=== PATIENT | female | born 1960 | race Caucasian/White ===

== ENCOUNTER 2017-02-20 04:27 | Emergency (ER) | payer OTHER ==
[~2017-02-20] VITALS: Ht 152.4 cm; Wt 114.0 kg
[~2017-02-20 04:27] MED LIST: AMBIEN10 MG PO; ATORVASTATIN CA20 MG PO; AUGMENTIN875 MG PO; BENTYL10 MG PO; BENTYL20 MG PO; CALCIUM 500 MG1 EACH PO; CARAFATE1 GM PO; CEPHALEXIN500 MG PO; COLACE100 MG PO; DAILY VITE1 EAC1 PO; DIAZEPAM5 MG PO; DITROPAN XL10 MG PO; DITROPAN5 MG PO; DOXYCYCLINE HY100 MG PO; DULCOLAX10 MG PR; ENDOCET 5-3251 EACH PO; ENOXAPARIN40 MG/0.4 SC; FENOFIBRATE160 M1 PO; FERROUS SULFAT325 MG PO; FISH OIL 1,0001 EAC7 PO; FLAGYL500 MG PO; FLEET ENEMA-AD118 ML PR; FLONASE16 G1 BOTH NARES; FLOVENT 22120 INHALA IH; GLUCOPHAGE1000 MG PO; KAYEXALATE453.6 GM PO; LANTUS 10100 UNITS/ SC; LANTUS 3 M100 UNITS1 SC; LANTUS100 UNIT/2 SQ; LEXAPRO10 MG PO; LEXAPRO20 MG PO; LISINOPRIL20 MG PO; LISINOPRIL40 MG PO; LOVAZA1 GM PO; LOVENOX40 MG/0.4 SC; LYRICA150 MG PO; MAALOX ADVANCE355 ML PO; MELOXICAM15 MG PO; MELOXICAM7.5 MG PO; METFORMIN HCL1000 M1 PO; METFORMIN HCL1000 MG PO; MOBIC7.5 MG PO; MOTRIN IB200 MG PO; MOTRIN400 MG PO; NAPROSYN500 MG PO; NOVOLOG 10100 UNITS/ SC; NOVOLOG PE100 UNITS/ SC; NOVOLOG100 UNIT/2 SQ; OMEGA-31000 M1 PO; OMEPRAZOLE20 M2 PO; OMEPRAZOLE20 MG PO; OXYBUTYNIN CHLOR5 M1 PO; OXYCODONE HCL5 MG PO; PHILLIPS'400 MG/5 M PO; PRILOSEC20 MG PO; PRINIVIL20 MG PO; RANITIDINE HCL150 MG PO; ROXICODONE5 MG PO; SIMVASTATIN40 MG PO; TRAMADOL HCL50 MG PO; TYLENOL REGULA325 MG PO; ULTRAM50 MG PO; VAGINAL ITCH CR30 GM TP; VALIUM5 MG PO; VENLAFAXINE HC150 M1 PO; VENLAFAXINE HCL75 M3 PO; VENTOLIN HFA18 GM IH; VITAMIN D31000 UNIT PO; ZANTAC150 MG PO; ZOCOR40 MG PO; ZOFRAN ODT4 MG PO; ZOFRAN ODT8 MG PO; ZOFRAN4 MG PO; ZOLPIDEM TARTRA10 MG PO; ZOSYN 3.3753.375 GM IV
[2017-02-20 05:25] LABS: CHLORIDE 105 mEq/L (99-109); POTASSIUM 3.5 mEq/L (3.7-5.4); SODIUM 136 mEq/L (136-147)
[2017-02-20 05:28] LABS: GLUCOSE 189 mg/dL (70-99)
[2017-02-20 05:29] LABS: ANION GAP 9 MEQ/L (2-14)
[2017-02-20 05:30] LABS: TOTAL BILIRUBIN 0.6 mg/dL (0.0-1.0)
[2017-02-20 05:31] LABS: ALKALINE PHOSPHATASE 128 IU/L (3-129); GFR ESTIMATE (CALCULATED) > 59 mL/min/; HEMATOCRIT 42.8 % (36.0-46.0); MCH 29.1 PG (29.0-34.0); MCHC 33.9 G/DL (30.0-36.0); MCV 85.9 FL (83-99); MEAN PLAT.VOLUME 10.5 uM^3 (9.5-12.4); PLATELET COUNT 300 K/uL (156-360); RBC DIS.WIDTH-SD 40.1 % (39-53); RED BLOOD COUNT 4.98 M/uL (3.80-5.20); WHITE BLOOD COUNT 8.8 K/uL (4.1-10.2)
[2017-02-20 05:32] LABS: UREA NITROGEN (BUN) 15 mg/dL (9-23)
[2017-02-20] MEDS ORDERED: REGLAN10 MG PO (05:56)
[2017-02-20 06:11] VITALS: BP 131/82
== END 2017-02-20 06:14 | disposition home or self-care (01) ==
LOC: EME 04:27
PROVIDERS: Physician Assistant
DX: R11.2 Nausea with vomiting, unspecified (principal); R10.9 Unspecified abdominal pain; E11.9 Type 2 diabetes mellitus without complications; Z79.84 Long term (current) use of oral hypoglycemic drugs; I10 Essential (primary) hypertension; E78.5 Hyperlipidemia, unspecified; Z87.442 Personal history of urinary calculi; Z90.49 Acquired absence of other specified parts of digestive tract; Z87.891 Personal history of nicotine dependence
CPT/HCPCS: 80053; 81003; 85027; 99281; 99284

== ENCOUNTER 2017-08-27 20:10 | Emergency (ER) | payer OTHER ==
[~2017-08-27] VITALS: Ht 152.4 cm; Wt 117.1 kg
[~2017-08-27 20:10] MED LIST changes: +REGLAN10 MG PO
[2017-08-27 21:02] LABS: HEMATOCRIT 33.3 % (36.0-46.0); HEMOGLOBIN 11.1 G/DL (11.9-15.5); MCH 29.1 PG (29.0-34.0); MCHC 33.3 G/DL (30.0-36.0); MCV 87.2 FL (83-99); PLATELET COUNT 232 K/uL (156-360); RBC DIS.WIDTH-CV 12.7 % (11.8-14.6); RBC DIS.WIDTH-SD 40.1 % (39-53); RED BLOOD COUNT 3.82 M/uL (3.80-5.20); WHITE BLOOD COUNT 8.6 K/uL (4.1-10.2)
[2017-08-27 21:05] LABS: APPEARANCE TURBID ((CLEAR)); BILIRUBIN NEGATIVE; BLOOD LARGE; COLOR AMBER ((YELLOW)); GLUCOSE (STRIP) NEGATIVE; KETONES NEGATIVE; LEUKOCYTES LARGE; NITRITE NEGATIVE; PROTEIN (STRIP) 100; UROBILINOGEN 0.2 MG/DL (0.2-1.0)
[2017-08-27 21:22] LABS: RED BLOOD CELLS TNTC /HPF (0-5)
[2017-08-27 21:23] LABS: UCUL ADDED? YES; WHITE BLOOD CELLS TNTC /HPF (0-5)
[2017-08-27 21:28] LABS: ALBUMIN 3.1 g/dL (3.2-4.8); CHLORIDE 108 mEq/L (99-109); POTASSIUM 4.3 mEq/L (3.7-5.4); SODIUM 136 mEq/L (136-147)
[2017-08-27 21:31] LABS: TOTAL PROTEIN 6.1 g/dL (6.4-8.3)
[2017-08-27 21:33] LABS: TOTAL BILIRUBIN 0.3 mg/dL (0.0-1.0)
[2017-08-27 21:34] LABS: ALKALINE PHOSPHATASE 117 IU/L (3-129); CREATININE 0.9 mg/dL (0.6-1.3); GFR ESTIMATE (CALCULATED) > 59 mL/min/
[2017-08-27 21:35] LABS: UREA NITROGEN (BUN) 17 mg/dL (9-23)
[2017-08-27 21:36] LABS: AST (GOT) 9 IU/L (2-34)
[2017-08-27 21:37] LABS: ALT (GPT) 6 IU/L (3-49)
[2017-08-27 21:40] LABS: GLUCOSE 419 mg/dL (70-99)
[2017-08-27] MEDS ORDERED: KEFLEX500 MG PO (22:26)
[2017-08-27 22:54] VITALS: BP 142/72
[2017-08-28] MEDS ORDERED: FLEXERIL10 MG PO (18:57)
== END 2017-08-27 23:09 | disposition home or self-care (01) ==
LOC: EME → EDBD 20:10 → EME 20:10
PROVIDERS: Physician Assistant
DX: M25.571 Pain in right ankle and joints of right foot (principal); G89.29 Other chronic pain; E11.65 Type 2 diabetes mellitus with hyperglycemia; N39.0 Urinary tract infection, site not specified; Z91.14 Patient's other noncompliance with medication regimen; Z79.4 Long term (current) use of insulin; Z88.5 Allergy status to narcotic agent
CPT/HCPCS: 80053; 81003; 82010; 82948; 85027; 87086; 93971; 99281; 99283; J0696; J3010; J7030

== ENCOUNTER 2017-08-28 15:41 | Emergency (ER) | payer OTHER ==
[~2017-08-28] VITALS: Ht 172.7 cm; Wt 111.4 kg
[~2017-08-28 15:41] MED LIST changes: +KEFLEX500 MG PO
[2017-08-28] MEDS ORDERED: FLEXERIL10 MG PO (18:57)
[2017-08-28 19:35] VITALS: BP 138/72
== END 2017-08-28 19:41 | disposition home or self-care (01) ==
LOC: EME 15:41
DX: G89.29 Other chronic pain (principal); M25.571 Pain in right ankle and joints of right foot; Z96.661 Presence of right artificial ankle joint; E11.9 Type 2 diabetes mellitus without complications; Z79.4 Long term (current) use of insulin; Z87.440 Personal history of urinary (tract) infections; J45.909 Unspecified asthma, uncomplicated; Z87.891 Personal history of nicotine dependence
CPT/HCPCS: 73610; 99281; 99283; J3010

== ENCOUNTER 2017-10-16 21:03 | Emergency (ER) | payer OTHER ==
[~2017-10-16] VITALS: Ht 152.4 cm; Wt 113.0 kg
[~2017-10-16 21:03] MED LIST changes: +FLEXERIL10 MG PO
[2017-10-16 21:54] LABS: HEMATOCRIT 44.2 % (36.0-46.0); HEMOGLOBIN 14.4 G/DL (11.9-15.5); MCH 27.7 PG (29.0-34.0); MCHC 32.6 G/DL (30.0-36.0); PLATELET COUNT 307 K/uL (156-360); RBC DIS.WIDTH-CV 13.2 % (11.8-14.6); RBC DIS.WIDTH-SD 40.9 % (39-53); WHITE BLOOD COUNT 9.2 K/uL (4.1-10.2)
[2017-10-16 22:16] LABS: ALBUMIN 4.1 g/dL (3.2-4.8); CHLORIDE 95 mEq/L (99-109); SODIUM 133 mEq/L (136-147)
[2017-10-16 22:19] LABS: TOTAL PROTEIN 8.3 g/dL (6.4-8.3)
[2017-10-16 22:21] LABS: TOTAL BILIRUBIN 0.9 mg/dL (0.0-1.0)
[2017-10-16 22:22] LABS: ALKALINE PHOSPHATASE 134 IU/L (3-129); CREATININE 1.1 mg/dL (0.6-1.3); GFR ESTIMATE (CALCULATED) 55 mL/min/
[2017-10-16 22:23] LABS: UREA NITROGEN (BUN) 19 mg/dL (9-23)
[2017-10-16 22:24] LABS: AST (GOT) 28 IU/L (2-34)
[2017-10-16 22:25] LABS: ALT (GPT) 11 IU/L (3-49)
[2017-10-16 22:31] LABS: GLUCOSE 448 mg/dL (70-99)
[2017-10-16 22:32] LABS: QUANTITATIVE HCG < 4.0 MIU/ML
[2017-10-17 04:20] LABS: APPEARANCE CLOUDY ((CLEAR)); BILIRUBIN NEGATIVE; BLOOD NEGATIVE; COLOR YELLOW ((YELLOW)); GLUCOSE (STRIP) >=500; KETONES 5; LEUKOCYTES NEGATIVE; NITRITE NEGATIVE; PROTEIN (STRIP) 30
[2017-10-17] MEDS ORDERED: AUGMENTIN875 MG PO (04:35)
[2017-10-17] MEDS ORDERED: ZOFRAN4 MG PO (04:35)
[2017-10-17 04:49] LABS: EPITHELIAL CELLS 2+ /HPF; MUCUS 1+ /LPF; RED BLOOD CELLS 0-5 /HPF (0-5); WHITE BLOOD CELLS 0-5 /HPF (0-5)
[2017-10-17 04:50] LABS: BACTERIA 1+ /HPF; HYALINE CASTS 0-5 /LPF; UCUL ADDED? NO
[2017-10-17 05:09] VITALS: BP 164/75
== END 2017-10-17 05:09 | disposition home or self-care (01) ==
LOC: EME 21:03
PROVIDERS: Emergency Medicine
DX: E11.65 Type 2 diabetes mellitus with hyperglycemia (principal); Z79.4 Long term (current) use of insulin; K52.9 Noninfective gastroenteritis and colitis, unspecified; E86.0 Dehydration; R93.5 Abnormal findings on diagnostic imaging of other abdominal regions, including retroperitoneum; I10 Essential (primary) hypertension; K21.9 Gastro-esophageal reflux disease without esophagitis; E78.5 Hyperlipidemia, unspecified; J45.909 Unspecified asthma, uncomplicated; F32.9 Major depressive disorder, single episode, unspecified; Z87.442 Personal history of urinary calculi; Z87.891 Personal history of nicotine dependence
CPT/HCPCS: 74176; 80053; 81003; 82010; 82948; 84702; 85027; 99281; 99285; J2405; J7030

== ENCOUNTER 2017-10-29 13:33 | Emergency (ER) | payer OTHER ==
[~2017-10-29] VITALS: Ht 152.4 cm; Wt 120.0 kg
[2017-10-29 14:10] LABS: HEMATOCRIT 39.3 % (36.0-46.0); HEMOGLOBIN 13.2 G/DL (11.9-15.5); MCH 28.6 PG (29.0-34.0); MCHC 33.6 G/DL (30.0-36.0); MCV 85.1 FL (83-99); PLATELET COUNT 254 K/uL (156-360); RBC DIS.WIDTH-CV 13.4 % (11.8-14.6); RBC DIS.WIDTH-SD 41.5 % (39-53); RED BLOOD COUNT 4.62 M/uL (3.80-5.20); WHITE BLOOD COUNT 10.3 K/uL (4.1-10.2)
[2017-10-29 14:21] LABS: CHLORIDE 103 mEq/L (99-109); POTASSIUM 4.6 mEq/L (3.7-5.4); SODIUM 135 mEq/L (136-147)
[2017-10-29 14:22] LABS: GLUCOSE 362 mg/dL (70-99)
[2017-10-29 14:26] LABS: CREATININE 0.8 mg/dL (0.6-1.3); GFR ESTIMATE (CALCULATED) > 59 mL/min/
[2017-10-29 14:27] LABS: UREA NITROGEN (BUN) 17 mg/dL (9-23)
[2017-10-29 14:30] LABS: TROP-I INTERPRETATION NEGATIVE; TROPONIN-I < 0.01 ng/mL (0.0-0.30)
[2017-10-29 16:58] LABS: TROP-I INTERPRETATION NEGATIVE; TROPONIN-I < 0.01 ng/mL (0.0-0.30)
[2017-10-29 18:41] VITALS: BP 152/84
== END 2017-10-29 18:41 | disposition home or self-care (01) ==
LOC: EME 13:33
PROVIDERS: Emergency Medicine
DX: F11.20 Opioid dependence, uncomplicated (principal); R07.9 Chest pain, unspecified; E11.65 Type 2 diabetes mellitus with hyperglycemia; Z79.4 Long term (current) use of insulin; E78.5 Hyperlipidemia, unspecified; I10 Essential (primary) hypertension; Z82.49 Family history of ischemic heart disease and other diseases of the circulatory system; K21.9 Gastro-esophageal reflux disease without esophagitis; J45.909 Unspecified asthma, uncomplicated; F32.9 Major depressive disorder, single episode, unspecified; Z87.442 Personal history of urinary calculi; Z87.891 Personal history of nicotine dependence
CPT/HCPCS: 71046; 80048; 84484; 85027; 93005; 99281; 99284